=== PATIENT | male | born 1990 | race Hispanic/Latino ===

== ENCOUNTER 2020-11-13 09:58 | Emergency (ER) | payer SELFPAY ==
[2020-11-13] MEDS ORDERED: HYDROcodone/Acetaminophen 10/325 mg Tablet ONE (10:17)
[2020-11-13] MEDS ORDERED: Boostrix 0.5 ML (Tdap) VIAL ONE (10:17)
== END 2020-11-13 11:10 | disposition home or self-care (01) ==
LOC: ERS 09:58
DX: S90.31XA Contusion of right foot, initial encounter (principal); W22.8XXA Striking against or struck by other objects, initial encounter
CPT/HCPCS: 90471; 90715